=== PATIENT | male | born 1965 | race Two or more races ===

== ENCOUNTER → 2022-12-28 | Outpatient (CLI) | payer BC, SELFPAY ==
--- NOTE | 2022-12-28 | LES_PTH ---
PATIENT: LAISHA RHOADES [facility] U#:[id number] AGE/SX: 57/M ROOM: RE12/28/[address]: NAI NELSON MD : [id number] BED: DIS: 12/28/2022 SPEC #: [id number] RECD: 12/28/22 14:44 STATUS: RITCHIE TOD #: [id number] DIMAS: 12/28/22 00:[address]: NAI NELSON DEPT: SURGICAL PATHOLOGY RECD BY: Pradip Jackson ENTERED: 12/28/22 14:44 SP TYPE: Lesion OTHR DR: No Primary Care Phys Tissues: A - Skin of face, NOS B - Skin of face, NOS Procedures: Special Stain Group I Surgery Specimen Level IV GMS Stain (control) HEADER OPERATION: Incisional biopsy of left cheek PRE-OP DIAGNOSIS: Left cheek leukoplakia TISSUE SUBMITTED: A - Upper left cheek mucosa, B - Lower left cheek mucosa MICROSCOPIC DIAGNOSIS A. Left upper cheek mucosa, biopsy: Chronic lichenoid inflammation. Parakeratosis. Negative for fungal organisms. See comment. B. Left lower cheek mucosa, biopsy: Chronic lichenoid inflammation. Parakeratosis. Negative for fungal organisms. See comment. AM:pooja 12/29/2022 COMMENT A & B. GMS stain with matched control was used in the evaluation of this case. Case has been reviewed in consultation with Dr. Cardenas who concurs with the above diagnosis. IDC:TIM MICROSCOPIC DESCRIPTION Slides are reviewed. GROSS DESCRIPTION A - Received in fixative is one container labeled with the patient's name and designated upper left cheek. The specimen consists of a piece of solares mucosal tissue measuring 0.4 x 0.3 x 0.2 cm. The entire specimen is submitted in one cassette. B - Received in fixative is one container labeled with the patient's name and designated lower left cheek. The specimen consists of a piece of solares mucosal tissue measuring 0.5 x 0.3 x 0.1 cm. The entire specimen is submitted in one cassette. / SJ:pooja 12/28/2022 TC:3 CPT: 54723 x2, 53674 x2
== END | disposition home or self-care (01) ==
LOC: LABSPEC 11:10
PROVIDERS: Referring Provider Dentist Oral and Maxillofacial Surgery; Visit Provider Dentist Oral and Maxillofacial Surgery
DX: R23.4 Changes in skin texture (principal); K13.21 Leukoplakia of oral mucosa, including tongue
CPT/HCPCS: 88305; 88312